=== PATIENT | male | born 1940 | race Caucasian/White ===

== ENCOUNTER 2017-08-04 19:22 | Inpatient (IN) | payer BC, MEDICARE, OTHER ==
[~2017-08-04] VITALS: Ht 175.3 cm; Wt 110.4 kg
[2017-08-04] MEDS ORDERED: SODIUM CHLORIDE 0.9% 1,000ML IVBOLUS ONE (19:30)
[2017-08-04] MEDS ORDERED: PLEASE ENTER ALLERGIES MC SCH (19:30)
[2017-08-04] MEDS ORDERED: SODIUM CHLORIDE FLUSH 10ML SYR IVF ONE (19:30)
[2017-08-04] MEDS ORDERED: PLEASE ENTER HEIGHT AND WEIGHT MC SCH (19:30)
[2017-08-04] MEDS ORDERED: ACETAMINOPHEN 500 MG TABLET PO ONE (19:30)
[2017-08-04] MEDS ORDERED: ACETAMINOPHEN 500 MG TABLET ONE (19:34)
[2017-08-04 20:06] LABS: MEAN CORPUSCULAR HEMOGLOBIN 37.7 pg (27.5-34.5); MEAN CORPUSCULAR HGB CONC 34.2 g/dL (33.2-36.2); MEAN CORPUSCULAR VOLUME 110.3 fL (81-97); MEAN PLATELET VOLUME 9.3 fL (7.4-10.4); PLATELET COUNT 235 x10^3/uL (130-400); RED BLOOD COUNT 4.04 x10^6/uL (4.38-5.82); RED CELL DISTRIBUTION WIDTH 13.6 % (9.4-14.8)
[2017-08-04 20:12] LABS: INTERNATIONAL NORMALIZED RATIO 1.15 (0.93-1.1); PROTHROMBIN TIME 11.9 Seconds (9.6-11.5)
[2017-08-04 20:15] LABS: ALANINE AMINOTRANSFERASE 45 U/L (12-78); ALBUMIN 2.9 g/dL (3.4-5.0); ANION GAP 7 mmol/L (5-15); CALCIUM 9.6 mg/dL (8.5-10.1); CHLORIDE 101 mmol/L (98-107); CREATININE 0.85 mg/dL (0.7-1.3)
[2017-08-04] MEDS ORDERED: PRIM50TA PO (20:15)
[2017-08-04] MEDS ORDERED: PRIM250T PO (20:15)
[2017-08-04 20:17] LABS: ALKALINE PHOSPHATASE 117 U/L (45-117); BILIRUBIN,TOTAL 0.8 mg/dL (0.2-1.0); TOTAL PROTEIN 8.3 g/dL (6.4-8.2)
[2017-08-04 20:21] LABS: MD YES
[2017-08-04 20:23] LABS: BAND#(MANUAL) 2.64 x10^3/uL; BANDS%(MANUAL) 12 % (0-7); LYMPH#(MANUAL) 0.44 x10^3/uL (1-3.4); LYMPHS% (MANUAL) 2 % (22-44); MONOS#(MANUAL) 0.44 x10^3/uL (0.3-2.7); MONOS% (MANUAL) 2 % (2-9); SEG#(MANUAL) 18.48 x10^3/uL (1.8-6.8); SEGS% (MANUAL) 84 % (42-75)
[2017-08-04 20:26] LABS: <PLATELET ESTIMATE> ADEQUATE; <PLT MORPHOLOGY> NORMAL PLT MORPH
[2017-08-04 20:36] LABS: MICROSCOPIC AUTO
[2017-08-04 20:40] LABS: CULTURE INDICATED? YES
[2017-08-04] MEDS ORDERED: CEFTRIAXONE PMX 2GM/50ML 50 ML ONE (20:59)
[2017-08-04] MEDS ORDERED: CEFTRIAXONE PMX 2GM/50ML 50 ML IV ONE (21:00)
[2017-08-04 22:53] VITALS: BP 129/74
[2017-08-04] MEDS ORDERED: DOCUSATE 100 MG CAPSULE PO PRN (23:00)
[2017-08-04] MEDS ORDERED: hydrALAzine 20 MG/ML, 1ML IVPush PRN (23:00)
[2017-08-04] MEDS ORDERED: ONDANSETRON ODT 4 MG PO PRN (23:00)
[2017-08-04] MEDS ORDERED: ACETAMINOPHEN 325 MG TABLET PO PRN (23:00)
[2017-08-04] MEDS: PRIMIDONE 250 MG TABLET PO SCH (23:38)
[2017-08-04] MEDS: SODIUM CHLORIDE 0.9% 1,000 ML IV SCH (23:40)
[2017-08-04] MEDS: ENOXAPARIN 40 MG/0.4 ML SQ SCH (23:40)
[2017-08-05 01:48] VITALS: BP 118/73
[2017-08-05 07:31] VITALS: BP 124/70
[2017-08-05] MEDS: SODIUM CHLORIDE 0.9% 1,000 ML IV SCH ×3 (07:31→22:09)
[2017-08-05] MEDS: PRIMIDONE 50 MG TABLET PO SCH (09:03)
[2017-08-05 20:53] VITALS: BP 137/77
[2017-08-05] MEDS: PRIMIDONE 250 MG TABLET PO SCH (21:11)
[2017-08-05] MEDS: CEFTRIAXONE PMX 1GM/50ML 50 ML IV SCH (22:09)
[2017-08-05] MEDS: ENOXAPARIN 40 MG/0.4 ML SQ SCH (22:09)
[2017-08-06 01:58] VITALS: BP 124/74
[2017-08-06 05:29] LABS: ALBUMIN 2.2 g/dL (3.4-5.0); ANION GAP 6 mmol/L (5-15); CALCIUM 9.1 mg/dL (8.5-10.1); CHLORIDE 106 mmol/L (98-107)
[2017-08-06 05:33] LABS: ALANINE AMINOTRANSFERASE 31 U/L (12-78); ALKALINE PHOSPHATASE 116 U/L (45-117); BILIRUBIN,TOTAL 0.7 mg/dL (0.2-1.0); TOTAL PROTEIN 7.1 g/dL (6.4-8.2)
[2017-08-06 05:55] LABS: MEAN CORPUSCULAR HEMOGLOBIN 36.9 pg (27.5-34.5); MEAN CORPUSCULAR HGB CONC 33.4 g/dL (33.2-36.2); MEAN CORPUSCULAR VOLUME 110.3 fL (81-97); MEAN PLATELET VOLUME 9.5 fL (7.4-10.4); PLATELET COUNT 196 x10^3/uL (130-400); RED BLOOD COUNT 3.69 x10^6/uL (4.38-5.82); RED CELL DISTRIBUTION WIDTH 13.9 % (9.4-14.8)
[2017-08-06 06:22] LABS: BASOPHILS # (AUTO) 0.01 x10^3/uL (0-0.1); BASOPHILS % (AUTO) 0 % (0-1); EOSINOPHILS # (AUTO) 0.02 x10^3/uL (0-0.4); EOSINOPHILS % (AUTO) 0 % (1-7); LYMPHOCYTES # (AUTO) 1.19 x10^3/uL (1-3.4); LYMPHOCYTES % (AUTO) 8 % (22-44); MD SCAN; MONOCYTES # (AUTO) 0.68 x10^3/uL (0.2-0.8); MONOCYTES % (AUTO) 4 % (2-9); NEUTROPHILS # (AUTO) 13.67 x10^3/uL (1.8-6.8); NEUTROPHILS % (AUTO) 88 % (42-75)
[2017-08-06 07:05] VITALS: BP 144/89
[2017-08-06] MEDS: SODIUM CHLORIDE 0.9% 1,000 ML IV SCH ×2 (07:39→16:24)
[2017-08-06] MEDS: PRIMIDONE 50 MG TABLET PO SCH (08:40)
[2017-08-06 12:36] VITALS: BP 151/76
[2017-08-06 20:28] VITALS: BP 151/82
[2017-08-06] MEDS: PRIMIDONE 250 MG TABLET PO SCH (21:00)
[2017-08-06] MEDS: CEFTRIAXONE PMX 1GM/50ML 50 ML IV SCH (21:50)
[2017-08-06] MEDS: ENOXAPARIN 40 MG/0.4 ML SQ SCH (21:50)
[2017-08-07 01:24] VITALS: BP 153/87
[2017-08-07 05:33] LABS: BASOPHILS # (AUTO) 0.04 x10^3/uL (0-0.1); BASOPHILS % (AUTO) 1 % (0-1); EOSINOPHILS # (AUTO) 0.03 x10^3/uL (0-0.4); EOSINOPHILS % (AUTO) 0 % (1-7); LYMPHOCYTES # (AUTO) 0.88 x10^3/uL (1-3.4); LYMPHOCYTES % (AUTO) 11 % (22-44); MD NO; MEAN CORPUSCULAR HEMOGLOBIN 37.6 pg (27.5-34.5); MEAN CORPUSCULAR VOLUME 110.6 fL (81-97); MEAN PLATELET VOLUME 9.8 fL (7.4-10.4); MONOCYTES # (AUTO) 0.64 x10^3/uL (0.2-0.8); MONOCYTES % (AUTO) 8 % (2-9); NEUTROPHILS # (AUTO) 6.54 x10^3/uL (1.8-6.8); NEUTROPHILS % (AUTO) 80 % (42-75); PLATELET COUNT 183 x10^3/uL (130-400); RED BLOOD COUNT 3.71 x10^6/uL (4.38-5.82); RED CELL DISTRIBUTION WIDTH 13.9 % (9.4-14.8)
[2017-08-07 05:44] LABS: ANION GAP 6 mmol/L (5-15); CALCIUM 9.4 mg/dL (8.5-10.1); CHLORIDE 105 mmol/L (98-107)
[2017-08-07 05:47] LABS: CREATININE 0.46 mg/dL (0.7-1.3)
[2017-08-07 07:39] VITALS: BP 155/84
[2017-08-07] MEDS: SODIUM CHLORIDE 0.9% 1,000 ML IV SCH (07:47)
[2017-08-07] MEDS: PRIMIDONE 50 MG TABLET PO SCH (09:07)
[2017-08-07] MEDS ORDERED: CEFD300C37 PO (11:20)
[2017-08-07 12:39] VITALS: BP 161/80
== END 2017-08-07 14:45 | disposition home or self-care (01) | DRG 871 ==
LOC: ED 21:11 → EDIP 21:12 → 4EST 22:41 → DCLOUNGE 08-07 14:36
PROVIDERS: ADMIT Hospitalist; ATTEND Hospitalist
DX: A41.9 Sepsis, unspecified organism (principal); E43 Unspecified severe protein-calorie malnutrition; C90.00 Multiple myeloma not having achieved remission; G62.9 Polyneuropathy, unspecified; I27.20 Pulmonary hypertension, unspecified; N10 Acute pyelonephritis; B96.20 Unspecified Escherichia coli [E. coli] as the cause of diseases classified elsewhere; G25.0 Essential tremor; G89.29 Other chronic pain; I10 Essential (primary) hypertension; N40.1 Benign prostatic hyperplasia with lower urinary tract symptoms; R32 Unspecified urinary incontinence; R65.20 Severe sepsis without septic shock; Z80.3 Family history of malignant neoplasm of breast; Z82.49 Family history of ischemic heart disease and other diseases of the circulatory system; Z90.79 Acquired absence of other genital organ(s); Z68.35 Body mass index [BMI] 35.0-35.9, adult
CPT/HCPCS: 36415; 71045; 80048; 80053; 81001; 83605; 84145; 85025; 85610; 85730; 87040; 87086; 87186; 93005; 93306; 96361; 96365; J0696; J1650; J7030